=== PATIENT | female | born 1995 | race Caucasian/White ===

== ENCOUNTER 2016-12-12 20:47 | Emergency (ER) | payer OTHER ==
--- NOTE | 2016-12-12 22:05 | DIAGNOSTIC IMAGING REPORT ---
PROCEDURE: XR FOOT 3 VIEWS - LEFT INDICATION: TRAUMA/INJURY TECHNIQUE: Three views. COMPARISON: None. FINDINGS: Osseous structures, joint spaces and soft tissues are normal. IMPRESSION: 1. Normal left foot.
--- NOTE | 2016-12-12 22:13 | ED CLINICAL REPORT ---
Clinical Report - Physicians/Mid Levels [facility] [address] [place] [address] 12/12/2016 20:48 Patient: DARLIN CRUZ Time Seen: 20:53 Dec 12 2016. Arrived- By private vehicle. Historian- patient. HISTORY OF PRESENT ILLNESS Chief Complaint: Injury to the left foot. The injury happened just prior to arrival. Occurred at home. The patient sustained a crush injury and laceration. (patient sustained injury from a glass to her foot just prior to arrival. Aspirin injury to the area of the foot. Reports bleeding. Incident occurred within the last 1 hour.). REVIEW OF SYSTEMS The patient sustained a laceration. No swelling, tingling or suspected foreign body. She has no pain on weight bearing. All systems otherwise negative, except as recorded above. PAST HISTORY See nurses notes. The patient has not had a prior injury to the same area. Problems: Esophagitis. Bronchitis. Asthma. Additional Surgeries: Appendectomy. SOCIAL HISTORY Current every day smoker. Alcohol use. History of drug use: marijuana. ADDITIONAL NOTES The nursing notes have been reviewed. PHYSICAL EXAM Vital Signs: 12/12/2016 20:54 BP: 136/80. HR: 86. RR: 18. O2 saturation: 98%. Temp: 98.3 F. Pain level now: 4/10. Appearance: No acute distress. Extremities: Left dorsal foot: mild tenderness and subcutaneous 2.0 cm laceration of the proximal aspect of the dorsal foot. Neurovascular intact distally. No ligamentous laxity present. No puncture wound or deformity. No limitation in movement. Gait: Limping gait. LABS, X-RAYS, AND EKG Lt Foot X-ray: (neg for fx or large fb). Interpretation time: 2129. PROGRESS AND PROCEDURES Laceration Repair: Time: 21:53 Dec 12 2016. Location: (left foot). Time-out completed immediately before the procedure. Length: 2 cm. Complexity: simple (local anesthesia used and sutured). Wound depth/shape- curved and involving fascia. Wound is clean. Neuro/vascular/tendon status. Tendon examined. No sensory deficit, motor deficit or vascular deficit distally. No ligament injury or tendon deficit or laceration. Local anesthesia provided using 1% lidocaine. Prepped with Betadine. Wound explored, cleansed and irrigated. Subcutaneous closure: interrupted 4-0 (6 non absorb sutures). Post-procedure: she is stable. Bleeding is controlled and neuro-vascular status is intact distal to the wound. Dressing applied. Tetanus immunization up-to-date. Course of Care: Patient with no signs of center or ligamentous injury. No signs of infectious process. Very stable. No secondary signs of infectious. NO signs of fracture. NO signs of fb. Explored wound in bloodless field. Patient is stable. Physical exam findings are improved. Symptoms better. Patient/family counseled. Disposition: Discharged. Condition: good. CLINICAL IMPRESSION Single deep laceration to the left foot.Treatment of laceration not delayed. No infection or foreign body present. INSTRUCTIONS Protect wound and keep wound area clean. Apply bacitracin twice daily. Sutures should be removed in eight days. (6 sutures). Warnings: No infection warnings. OTC Medications: Take OTC medications according to label instructions. Available over the counter. Acetaminophen (available over the counter): take according to label instructions. Motrin (available over the counter): take according to label instructions. Follow-up: Follow up with doctor in eight days for suture removal. Understanding of the discharge instructions verbalized by patient. (Electronically signed by Esperanza Saucedo P.A.-C 12/12/2016 21:54)
--- NOTE | 2016-12-12 22:13 | ED NURSING NOTES ---
Clinical Report - Nurses [facility] [address] [place] [address] 12/12/2016 20:48 Patient: DARLIN CRUZ TRIAGE Triage time 20:54 Dec 12 2016. Acuity: LEVEL 4. Chief Complaint: INJURY TO LEFT FOOT. 20:58 12/12/16. SEPSIS SCREEN: Sepsis Screen. Negative (no infection suspected/documented). RIVAS COMA SCORE: [place] Coma Scale: 15- eyes open spontaneously (4); best verbal response- oriented x 4 (5); best motor response- obeys commands (6). --20:58 Alma Wong R.N. 20:54 12/12/16. BP: 136/80 (regular adult cuff) taken on the left arm, while sitting. HR: 86. RR: 18. O2 saturation: 98% on room air. Temp: 98.3 F (oral). Pain level now: 09/18. --20:58 Alma Wong R.N. Weight: 58.9 kg stated. Height/Length: 69 inches Per Patient. BMI: 19.2. --20:55 Alma Wong R.N. Medications Albuterol Sulfate Inhalation, PRN. Control Pills 1 pill, daily. Ibuprofen Oral (Last dose 5 hours ago). --05:53 Alma Wong R.N. PredniSONE Oral 20 mg, daily (on aweaning program). --05:53 Alma Wong R.N. Allergies Vicoden. Definite Moderate(itching, rash) --05:53 Alma Wong R.N. History Arrived by private vehicle. Historian: patient. Accompanied by friend. This occurred just prior to arrival. She sustained a laceration. She has had numbness, tingling, and trouble walking. 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 PAST MEDICAL HX: Tetanus status: unknown. Last normal menstrual period now. SOCIAL HX: Current every day light tobacco smoker (cigarette)- less than 1/2 a pack per day. Alcohol use; consumes beer weekly. History of heavy drug use: marijuana. Recently used drugs just prior to arrival. No infectious disease exposure. ABUSE ASSESSMENT: No report of abuse. SELF HARM ASSESSMENT: A self harm assessment was performed. The patient answered "no" to the question "Do you have thoughts of harming or killing yourself?" and "Have you recently had thoughts about harming or killing others?". --20:58 Alma Wong R.N. PROBLEMS: Esophagitis. Bronchitis. Asthma. --05:53 Alma Wong R.N. ADDITIONAL SURGERIES: Appendectomy. --05:53 Alma Wong R.N. Interventions ID band on patient. To treatment room. --20:58 Alma Wong R.N. PHYSICAL ASSESSMENT 20:59 12/12/16. To room via wheelchair. GENERAL / NEURO / PSYCH: Oriented X 4. Alert. Appears in no acute distress. Appears in pain. EXTREMITIES: Capillary refill is less than 2 seconds in the extremities. Extremity pulses are within normal limits. Extremities exhibit normal ROM. Pain with weight bearing. She was unable to bear weight. Neuro-vascular status intact to the extremity. Left foot: subcutaneous 4.0 cm laceration with controlled bleeding and single puncture wound. SKIN: Skin is warm and dry. Laceration. --20:59 Alma Wong R.N. NURSING PROGRESS NOTES 20:59 12/12/16. The plan of care for this patient has been created. Extremity elevated. Reassurance given. Two patient identifiers checked. Call light placed in reach. Side rails up x 1. Bed placed in lowest position. Brakes of bed on. Patient ready for evaluation- chart flagged and ED physician notified. --20:59 Alma Wong R.N. ( Xray in with patient). --21:15 Alma Wong R.N. 21:18 12/12/16 late entry -. ( Xray done). --21:21 Alma Wong R.N. 21:22 12/12/16. ( wound irrigated with sterile water, patient tolerated well). --21:22 Alma Wong R.N. DISPOSITION / DISCHARGE Condition at departure: improved. Discharge instructions provided and reviewed with the patient. Reviewed medication(s) side effects and course information. Prescription(s) given to the patient. Patient verbalized understanding. Written instructions provided in Icelandic. The patient was discharged by the physician food and beverage assistant manager. She was discharged home and accompanied by art therapy specialist. She left the Emergency Department ambulatory and via private vehicle. Seam Rubbing Machine Operator driving. ( s/sx of infection gone over with pt, pt verbalized understanding, pt dc home). --22:12 Stephanie River R.N. 22:11 12/12/16. BP: 128/74. HR: 76. RR: 17. O2 saturation: 99%. Temp: deferred. Pain level now: 0/10. --22:12 Stephanie River R.N. Locked/Released at 12/13/2016 5:53 by Alma Wong R.N.
--- NOTE | 2016-12-12 22:13 | ED ORDER SUMMARY ---
..... Patient: DARLIN CRUZ OrderSheet [facility] VisitID: [id number] [place] [address] 21y, F Registration Date/Time: 12/12/2016 ORDER SHEET Weight: 58.9 kg (stated) Allergies: Vicoden GENERAL ORDERS: Foot 3V Left Urgent (21:03 12/12/2016 Mitesh R.N. verbal order read back to Constance P.A.-C) (Ack 21:19 Jovan) (21:21 JSanders R.N.) Wound Irrigation (21:08 12/12/2016 Constance P.A.-C) (21:21 DENNISanders R.N.) - (dressing/ bacitracin/ non adhesive/ gauze to LEFT FOOT) (21:44 12/12/2016 EKjeromeleva P.A.-C) (22:04 DENNISanders R.N.) MEDICATION ORDERS: IV FLUIDS: ORDER SHEET NOTES: [Electronically signed by Esperanza SaucedoAGage-C (21:54 12/12/2016)] [Electronically signed by Alma Wong R.N. (05:53 12/13/2016)] [Electronically locked/signed by Alma Wong R.N. (05:53 12/13/2016)]
--- NOTE | 2016-12-12 22:13 | ED NURSING NOTES ---
Clinical Report - Nurses [facility] [address] [place] [address] 12/12/2016 20:48 Patient: DARLIN CRUZ TRIAGE Triage time 20:54 Dec 12 2016. Acuity: LEVEL 4. Chief Complaint: INJURY TO LEFT FOOT. 20:58 12/12/16. SEPSIS SCREEN: Sepsis Screen. Negative (no infection suspected/documented). RIVAS COMA SCORE: [place] Coma Scale: 15- eyes open spontaneously (4); best verbal response- oriented x 4 (5); best motor response- obeys commands (6). --20:58 Alma Wong R.N. 20:54 12/12/16. BP: 136/80 (regular adult cuff) taken on the left arm, while sitting. HR: 86. RR: 18. O2 saturation: 98% on room air. Temp: 98.3 F (oral). Pain level now: 09/18. --20:58 Alma Wong R.N. Weight: 58.9 kg stated. Height/Length: 69 inches Per Patient. BMI: 19.2. --20:55 Alma Wong R.N. Medications Albuterol Sulfate Inhalation, PRN. Control Pills 1 pill, daily. Ibuprofen Oral (Last dose 5 hours ago). --05:53 Alma Wong R.N. PredniSONE Oral 20 mg, daily (on aweaning program). --05:53 Alma Wong R.N. Allergies Vicoden. Definite Moderate(itching, rash) --05:53 Alma Wong R.N. History Arrived by private vehicle. Historian: patient. Accompanied by friend. This occurred just prior to arrival. She sustained a laceration. She has had numbness, tingling, and trouble walking. 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 PAST MEDICAL HX: Tetanus status: unknown. Last normal menstrual period now. SOCIAL HX: Current every day light tobacco smoker (cigarette)- less than 1/2 a pack per day. Alcohol use; consumes beer weekly. History of heavy drug use: marijuana. Recently used drugs just prior to arrival. No infectious disease exposure. ABUSE ASSESSMENT: No report of abuse. SELF HARM ASSESSMENT: A self harm assessment was performed. The patient answered "no" to the question "Do you have thoughts of harming or killing yourself?" and "Have you recently had thoughts about harming or killing others?". --20:58 Alma Wong R.N. PROBLEMS: Esophagitis. Bronchitis. Asthma. --05:53 Alma Wong R.N. ADDITIONAL SURGERIES: Appendectomy. --05:53 Alma Wong R.N. Interventions ID band on patient. To treatment room. --20:58 Alma Wong R.N. PHYSICAL ASSESSMENT 20:59 12/12/16. To room via wheelchair. GENERAL / NEURO / PSYCH: Oriented X 4. Alert. Appears in no acute distress. Appears in pain. EXTREMITIES: Capillary refill is less than 2 seconds in the extremities. Extremity pulses are within normal limits. Extremities exhibit normal ROM. Pain with weight bearing. She was unable to bear weight. Neuro-vascular status intact to the extremity. Left foot: subcutaneous 4.0 cm laceration with controlled bleeding and single puncture wound. SKIN: Skin is warm and dry. Laceration. --20:59 Alma Wong R.N. NURSING PROGRESS NOTES 20:59 12/12/16. The plan of care for this patient has been created. Extremity elevated. Reassurance given. Two patient identifiers checked. Call light placed in reach. Side rails up x 1. Bed placed in lowest position. Brakes of bed on. Patient ready for evaluation- chart flagged and ED physician notified. --20:59 Alma Wong R.N. ( Xray in with patient). --21:15 Alma Wong R.N. 21:18 12/12/16 late entry -. ( Xray done). --21:21 Alma Wong R.N. 21:22 12/12/16. ( wound irrigated with sterile water, patient tolerated well). --21:22 Alma Wong R.N. DISPOSITION / DISCHARGE Condition at departure: improved. Discharge instructions provided and reviewed with the patient. Reviewed medication(s) side effects and course information. Prescription(s) given to the patient. Patient verbalized understanding. Written instructions provided in Lithuanian. The patient was discharged by the physician pastry assistant. She was discharged home and accompanied by replenishment merchandising associate. She left the Emergency Department ambulatory and via private vehicle. Vessel Liner driving. ( s/sx of infection gone over with pt, pt verbalized understanding, pt dc home). --22:12 Stephanie River R.N. 22:11 12/12/16. BP: 128/74. HR: 76. RR: 17. O2 saturation: 99%. Temp: deferred. Pain level now: 0/10. --22:12 Stephanie River R.N. Locked/Released at 12/13/2016 5:53 by Alma Wong R.N.
--- NOTE | 2016-12-12 22:13 | ED ORDER SUMMARY ---
..... Patient: DARLIN CRUZ OrderSheet [facility] VisitID: [id number] [place] [address] 21y, F Registration Date/Time: 12/12/2016 ORDER SHEET Weight: 58.9 kg (stated) Allergies: Vicoden GENERAL ORDERS: Foot 3V Left Urgent (21:03 12/12/2016 Mitesh R.N. verbal order read back to Constance P.A.-C) (Ack 21:19 Jovan) (21:21 JSanders R.N.) Wound Irrigation (21:08 12/12/2016 Constance P.A.-C) (21:21 DENNISanders R.N.) - (dressing/ bacitracin/ non adhesive/ gauze to LEFT FOOT) (21:44 12/12/2016 EKjeromeleva P.A.-C) (22:04 DENNISanders R.N.) MEDICATION ORDERS: IV FLUIDS: ORDER SHEET NOTES: [Electronically signed by Esperanza SaucedoAGage-C (21:54 12/12/2016)] [Electronically signed by Alma Wong R.N. (05:53 12/13/2016)] [Electronically locked/signed by Alma Wong R.N. (05:53 12/13/2016)]
--- NOTE | 2016-12-13 05:54 | ED MED RECONCILIATION SUMMARY ---
Patient: DARLIN CRUZ Medication Reconciliation Report [facility] VisitID: [id number] [place] [address] 21y, F Registration Date/Time: 12/12/2016 Weight: 58.9 kg Height/Length: 69 in. BMI: 19.2 ALLERGIES: Vicoden The patient's Home Medications are listed below: THE FOLLOWING MEDICATIONS NEED TO BE RECONCILED: Albuterol Sulfate Inhalation, PRN Control Pills 1 pill, daily Ibuprofen Oral, Last dose 5 hours ago PredniSONE Oral 20 mg, daily, on aweaning program The source(s) of the original Home Medication information: Not obtained. The following Medications were given to the patient in the Emergency Department: None. The following Medications were prescribed to the patient: Take OTC medications according to label instructions. Available over the counter. -- Esperanza Saucedo, P.A.-C Acetaminophen (available over the counter): take according to label instructions. -- Esperanza Saucedo, P.A.-C Motrin (available over the counter): take according to label instructions. -- Esperanza Saucedo, P.A.-C
--- NOTE | 2016-12-13 05:54 | ED MED RECONCILIATION SUMMARY ---
Patient: DARLIN CRUZ Medication Reconciliation Report [facility] VisitID: [id number] [place] [address] 21y, F Registration Date/Time: 12/12/2016 Weight: 58.9 kg Height/Length: 69 in. BMI: 19.2 ALLERGIES: Vicoden The patient's Home Medications are listed below: THE FOLLOWING MEDICATIONS NEED TO BE RECONCILED: Albuterol Sulfate Inhalation, PRN Control Pills 1 pill, daily Ibuprofen Oral, Last dose 5 hours ago PredniSONE Oral 20 mg, daily, on aweaning program The source(s) of the original Home Medication information: Not obtained. The following Medications were given to the patient in the Emergency Department: None. The following Medications were prescribed to the patient: Take OTC medications according to label instructions. Available over the counter. -- Esperanza Saucedo, P.A.-C Acetaminophen (available over the counter): take according to label instructions. -- Esperanza Saucedo, P.A.-C Motrin (available over the counter): take according to label instructions. -- Esperanza Saucedo, P.A.-C
--- NOTE | 2016-12-13 05:54 | ED MAR SUMMARY ---
..... Medication Administration Record [facility] [address] [place], [place] [id number] Patient: DARLIN CRUZ Visit ID: [id number] 21y, F Weight: 58.9 kg Height/Length: 69 in BMI: 19.2 ALLERGIES: Vicoden
--- NOTE | 2016-12-13 05:54 | ED DISCHARGE INSTRUCTIONS ---
Patient: DARLIN CRUZ General Instructions [facility] VisitID: [id number] [place] [address] 21y, F Registration Date/Time: 12/12/2016 Single deep laceration to the left foot.Treatment of laceration not delayed. No infection or foreign body present. INSTRUCTIONS Protect wound and keep wound area clean. Apply bacitracin twice daily. Sutures should be removed in eight days. (6 sutures). Warnings: No infection warnings. OTC Medications: Take OTC medications according to label instructions. Available over the counter. Acetaminophen (available over the counter): take according to label instructions. Motrin (available over the counter): take according to label instructions. Follow-up: Follow up with doctor in eight days for suture removal. Understanding of the discharge instructions verbalized by patient. ADDITIONAL INFORMATION Laceration (All Closures) Alaceration is a cut through the skin. This will usually require stitches (sutures) or erick if it is deep. Minor cuts may be treated with a surgical tape closure orskin glue. Home care The following guidelines will help you care for your laceration at home: Extremity, face, or trunk wounds Keep the wound clean and dry. If a bandage was applied and it becomes wet or dirty, replace it. Otherwise, leave it in place for the first 24 hours. If stitches or erick were used, clean the wound daily. After removing the bandage, wash the area with soap and water. Use a wet cotton swab to loosen and remove any blood or crust that forms. The doctor may prescribe an antibiotic cream or ointment to prevent infection. Do not stop taking this medication until you have finished the prescribed course or the doctor tells you to stop. The doctor may also prescribe medications for pain. Follow the doctors instructions for taking these medications. You may remove the bandage to shower as usual after the first 24 hours, but do not soak the area in water (no swimming) until the stitches or erick are removed. If surgical tape was used, keep the area clean and dry. If it becomes wet, blot it dry with a towel. If skin glue was used, do not scratch, rub, or pick at the adhesive film. Do not place tape directly over the film. Do not apply liquid, ointment, or creams to the wound while the film is in place. Do not clean the wound with peroxide and do not apply ointments. Avoid activities that cause heavy sweating until the film has fallen off. Protect the wound from prolonged exposure to sunlight or tanning lamps. You may shower as usual but do not soak the wound in water (no baths or swimming). The film will fall off by itself in 510 days. Scalp wounds During the first two days, you may carefully rinse your hair in the shower to remove blood, glass or dirt particles. After two days, you may shower and shampoo your hair normally. Do not soak your scalp in the tub or go swimming until the stitches or erick have been removed. Talk with your doctor before applying any antibiotic ointment to the wound. Mouth wounds Eat soft foods to reduce pain. If the cut is inside of your mouth, clean by rinsing after each meal and at bedtime with a mixture of equal parts water and hydrogen peroxide (do not swallow!). Or, you can use a cotton swab to directly apply hydrogen peroxide onto the cut. Mouth wounds can be painful when eating. You may use an [id number] local numbing solution for pain relief. If this is not available, you may use any numbing solution for teething babies. You may apply this directly to the sores with a cotton-tip swab or with your finger. Follow-up care Follow up with your health care provider. Most skin wounds heal within ten days. Mouth and facial wounds heal within five days. However, even with proper treatment, a wound infection may sometimes occur. Therefore, you should check the wound daily for signs of infection listed below. Stitches should be removed from the face within five days; stitches and erick should be removed from other parts of the body within 714 days. If dissolving stitches were used in the mouth, these will fall out or dissolve without the need for removal. If tape closures were used, remove them yourself if they have not fallen off after 7 days. Ifskin glue was used, the film will fall off by itself in 510 days. When to seek medical care Get prompt medical attention if any of these occur: Bleeding not controlled by direct pressure Signs of infection, including increasing pain in the wound, increasing wound redness or swelling, or pus coming from the wound Fever of 100.4F (38C) or higher, or as directed by your health care provider Stitches or erick come apart or fall out or surgical tape falls off before 7 days Wound edges re-open Laceration, Extremity (Sutures, Erick, Or Tape) A laceration is a cut through the skin. This will usually require stitches (sutures) or erick if it is deep. Minor cuts may be treated with surgical tape closures. Home care The following guidelines will help you care for your laceration at home: Keep the wound clean and dry. If a bandage was applied and it becomes wet or dirty, replace it. Otherwise, leave it in place for the first 24 hours, then change it once a day or as directed. If stitches or erick were used, clean the wound daily: After removing the bandage, wash the area with soap and water. Use a wet cotton swab to loosen and remove any blood or crust that forms. After cleaning, keep the wound clean and dry. Talk with your doctor before applying any antibiotic ointment to the wound. Reapply the bandage. You may remove the bandage to shower as usual after the first 24 hours, but do not soak the area in water (no swimming) until the stitches or erick are removed. If surgical tape closures were used, keep the area clean and dry. If it becomes wet, blot it dry with a towel. The doctor may prescribe an antibiotic cream or ointment to prevent infection. Do not stop taking this medication until you have finished the prescribed course or the doctor tells you to stop. The doctor may also prescribe medications for pain. Follow the doctors instructions for taking these medications. If you have chronic liver or kidney disease or ever had a stomach ulcer or GI bleeding, talk with your doctor before using these medicines. Follow-up care Follow up with your health care provider. Most skin wounds heal within ten days. However, an infection may sometimes occur despite proper treatment. Therefore, check the wound daily for the signs of infection listed below. Stitches and erick should be removed within 714 days. If surgical tape closures were used, you may remove them after 10 days, if they have not fallen off by then. Notify your doctor if you notice persistent numbness or weakness in the injured extremity. (Note:A radiologist will review any X-rays that were taken. We will notify you of any new findings that may affect your care.) When to seek medical care Get prompt medical attention if any of these occur: Increasing pain in the wound Redness, swelling, or pus coming from the wound Fever of 100.4F (38C) or higher, or as directed by your health care provider If stitches or erick come apart or fall out before your next appointment If the surgical tape closures fall off within seven days, or the wound edges re-open Bleeding not controlled by direct pressure You have been given the following additional information: Laceration, All Laceration, Extrem (Suture, Staple, Or Tape) (Electronically signed by Esperanza Saucedo P.A.-C 12/12/2016 21:54)
--- NOTE | 2016-12-13 05:54 | ED MAR SUMMARY ---
..... Medication Administration Record [facility] [address] [place], [place] [id number] Patient: DARLIN CRUZ Visit ID: [id number] 21y, F Weight: 58.9 kg Height/Length: 69 in BMI: 19.2 ALLERGIES: [place]
== END 2016-12-12 22:07 | disposition home or self-care (01) ==
LOC: ED SRH 20:47
DX: S91.312A Laceration without foreign body, left foot, initial encounter (principal); W25.XXXA Contact with sharp glass, initial encounter; Y93.9 Activity, unspecified; Y92.009 Unspecified place in unspecified non-institutional (private) residence as the place of occurrence of the external cause; Y99.9 Unspecified external cause status